=== PATIENT | male | born 1975 | race Caucasian/White ===

== ENCOUNTER → 2019-12-01 | Outpatient (CLI) | payer BC, OTHER ==
--- NOTE | 2019-12-03 08:53 | SLEEPCENT ---
DATE OF PROCEDURE: 12/01/2019 ORDERED: Dr. Arce Nocturnal polysomnography was performed for evaluation of sleep physiology in this patient with a history of excessive somnolence, observed apnea and nonrestorative sleep. 7 hours and 19 minutes of data were reviewed. There were 365.5 minutes of sleep identified. Sleep latency was mildly prolonged at 37.5 minutes. Rapid eye movement (REM) latency was short at 36 minutes. Sleep architecture was fair with some fragmentation. Five REM cycles were noted. Overall sleep efficiency 84.1%. The patient's electrocardiogram showed a sinus rhythm with an average heart rate of 68 beats per minute. Rate ranged 60-85. Electroencephalogram (EEG) showed normal waveforms for awake and sleep. There were 46 respiratory events identified of 10 seconds in duration or greater for an apnea-hypopnea index of 7.6. The events were primarily obstructive not exclusive to sleep stage nor body posture. Arousals from respiratory events occurred 5.7 times per hour and oxygen desaturations into the 80s were seen. There was some minor activity in the limb leads. Limb movement arousal index was 3.8. IMPRESSION: Obstructive sleep apnea syndrome (G47.33). Apnea-hypopnea index 7.6. RECOMMENDATIONS: The patient should be encouraged to return to the sleep disorder center for pressure therapy. In the interim, alcohol and sedative avoidance should be practiced and caution exercised during operation of motor vehicles.
== END ==
LOC: M SLEEP 20:00
PROVIDERS: ATTEND Internal Medicine Pulmonary Disease
DX: G47.33 Obstructive sleep apnea (adult) (pediatric) (principal)

== ENCOUNTER → 2020-01-15 | Outpatient (CLI) | payer BC, OTHER ==
--- NOTE | 2020-01-21 14:16 | SLEEPHOME ---
DATE OF PROCEDURE: 01/15/2020 ORDERED BY: Peng Arce MD Nocturnal polysomnography was performed for the titration of pressure therapy in this patient with obstructive sleep apnea syndrome. Apnea-hypopnea index of 7.6. For testing the patient was good with a ResMed AirFit F20 full-face mask of medium size; 4 cm of water pressure were applied to the circuit and the lights were extinguished. 7 hours and 37 minutes of data were reviewed. There were 379.5 minutes of sleep identified. Sleep latency was prolonged at 62.5 minutes. Rapid eye movement (REM) latency was short at 52 minutes. Sleep architecture was good with 4 REM cycles. Overall sleep efficiency was 84%. The electrocardiogram showed sinus rhythm with an average heart rate of 62 beats per minute. Electroencephalogram (EEG) showed normal waveforms for awake and sleep. Respiratory events were best palliated with CPAP at a pressure of +8. There was minimal activity in the limb leads and remaining measures of sleep physiology were normal. IMPRESSION: Obstructive sleep apnea syndrome (G47.33). RECOMMENDATIONS: Nightly use of pressure therapy 8 cm of water.
== END ==
LOC: M SLEEP 20:00
PROVIDERS: ATTEND Internal Medicine Pulmonary Disease
DX: G47.33 Obstructive sleep apnea (adult) (pediatric) (principal)